=== PATIENT | male | born 1990 ===

== ENCOUNTER 2016-09-05 17:47 | Inpatient (IN) | payer OTHER ==
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
[2016-09-06 04:50] LABS: MEAN CELL VOLUME 97.9 fl (80.0-94.0); MEAN CORPUSCULAR HEMOGLOBIN 32.8 pg (27.0-31.0); MEAN CORPUSCULAR HGB CONC 33.5 g/dL (33.0-37.0); RED CELL DISTRIBUTION WIDTH 13.2 % (11.5-14.5); WHITE BLOOD COUNT 7.5 K/uL (4.8-10.8)
[2016-09-06 05:42] LABS: ALB/GLOB RATIO 1.3 (1.0-2.1); ALKALINE PHOSPHATASE 48 U/L (38-126); ALT/SGPT 39 U/L (21-72); AST/SGOT 35 U/L (17-59); BILIRUBIN,TOTAL 0.6 mg/dl (0.2-1.3); BLOOD UREA NITROGEN 24 mg/dl (9-20); CALCIUM 9.1 mg/dL (8.4-10.2); CARBON DIOXIDE 29 mmol/L (22-30); CHLORIDE 102 mmol/L (98-107); GFR AFRICAN-AMERICAN > 60; GLUCOSE,RANDOM 82 mg/dL (75-110); POTASSIUM 3.8 MMOL/L (3.6-5.0); SODIUM 144 mmol/l (132-148); TOTAL PROTEIN 7.2 G/DL (6.3-8.2)
--- NOTE | 2016-09-06 05:58 | ED PDOC ---
- Laboratory Results Result Diagrams: 09/06/16 04:30 09/06/16 04:30 - ECG O2 Sat by Pulse Oximetry: 95 (RA) Pulse Ox Interpretation: Normal Medical Decision Making Medical Decision Making: Labs normal. Admission to psychiatric unit. Disposition - Clinical Impression Clinical Impression: Depression - POA Present On Arrival: None - Disposition Disposition: Admitted as In-Patient Disposition Time: 05:58 Condition: STABLE
[2016-09-06 07:42] VITALS: O2SAT 98
[2016-09-06 09:33] LABS: RBC URINE 2 /hpf (0-3); URINE BILIRUBIN NEGATIVE (NEGATIVE); URINE BLOOD NEGATIVE (NEGATIVE); URINE COLOR YELLOW (YELLOW); URINE GLUCOSE (UA) NEG (Normal); URINE KETONE NEGATIVE (NEGATIVE); URINE LEUKOCYTE ESTERASE NEG Leu/uL (Negative); URINE PROTEIN >=500 mg/dL (NEGATIVE); URINE UROBILINOGEN 0.2-1.0 mg/dL (0.2-1.0); WBC URINE 1 /hpf (0-5)
[2016-09-06] MEDS ORDERED: Magnesium Hydroxide Susp 30 ml UD PO PRN (11:31)
[2016-09-06] MEDS ORDERED: DiphenhydrAMINE 50 mg/ml Inj IM PRN (11:31)
[2016-09-06 13:09] VITALS: BMI 20.3
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
[2016-09-06 17:02] VITALS: RESP 18
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
[2016-09-07] MEDS: Multiple Vitamins Oral Solution PO SCH (09:17)
--- NOTE | 2016-09-07 10:05 | RAD ---
PROCEDURE: Right Ankle Radiographs. HISTORY: ankle pain COMPARISON: None FINDINGS: BONES: Bone alignment and mineralization are normal. There is no acute fracture or bone destruction. JOINTS: Normal. No osteoarthritis. Ankle mortise maintained. Talar dome intact SOFT TISSUES: Normal. OTHER FINDINGS: None. IMPRESSION: Normal examination.
[2016-09-07 13:40] LABS: T4 5.23 ug/dl (5.5-11.0)
[2016-09-07 13:53] LABS: THYROID STIMULATING HORMONE 0.25 mIU/ML (0.46-4.68)
--- NOTE | 2016-09-07 13:53 | PCM.PYCHPN ---
Psychiatric Progress Note - Psychiatric Progress Note Patient seen today, length of contact: in treatment team Patient Chief Complaint: i tried to cut myself Problems Identified/Issues Discussed: pt c.o stopping meds and starting to drink alcohol, he states he is still depressed. he feels safe in the hospital and is not thinking of ways to harm self. he is denying withdrawal symptoms. sleep is fair. no psychosis. Medication Change: Yes (start celexa) Medical Record Reviewed: Yes Mental Status Examination - Cognitive Function Orientation: Person, Place, Situation, Time Memory: Intact Attention: WNL Concentration: WNL Association: [facility] Fund of Knowledge: [facility] Decription of patient's judgement and insights: fair - Mood Mood: Depressed - Affect Affect: Constricted - Speech Speech: Appropriate - Formal Thought Process Formal Thought Process: No Impairment - Suicidal Ideation Suicidal Ideation: No Plan: denies current si - Homicidal Ideation Homicidal Ideation: No Goal/Treatment Plan - Goal/Treatment Plan Need for Continued Stay: Remain at risks for inpatient hospitalization, Severe functional impairment Progress Toward Problem(s) and Goals/Treatment Plan: major depression alcohol dependence will continue prn meds for withdrawal start celexa to target depression encourage participation in groups. Estimated Date of D/C: 09/11/16 - Smoking Cessation Smoking Cessation Initiated: No Reason for not providing: declines
[2016-09-08] MEDS: Multiple Vitamins Oral Solution PO SCH (08:41)
--- NOTE | 2016-09-08 12:04 | PCM.PYCHPN ---
Psychiatric Progress Note - Psychiatric Progress Note Patient seen today, length of contact: discussed with team Patient Chief Complaint: i am ok Problems Identified/Issues Discussed: pt without c/o alcohol withdrawal. remains guarded. denies suicidal thoughts currently. denies any psychotic symptoms. Medication Change: No Medical Record Reviewed: Yes Mental Status Examination - Cognitive Function Orientation: Person, Place, Situation, Time Memory: Intact Attention: WNL Concentration: WNL Association: WNL Fund of Knowledge: [facility] Decription of patient's judgement and insights: fair - Mood Mood: Depressed - Affect Affect: Constricted - Speech Speech: Appropriate - Formal Thought Process Formal Thought Process: No Impairment - Suicidal Ideation Suicidal Ideation: No - Homicidal Ideation Homicidal Ideation: No Goal/Treatment Plan - Goal/Treatment Plan Need for Continued Stay: Remain at risks for inpatient hospitalization, Severe functional impairment Progress Toward Problem(s) and Goals/Treatment Plan: major depression alcohol dependence will continue prn meds for withdrawal start celexa to target depression- will increase later this week encourage participation in groups. Estimated Date of D/C: 09/11/16
[2016-09-09 09:13] VITALS: BP 136/66; PULSE 83; TEMP 100.4
[2016-09-09] MEDS: Multiple Vitamins Oral Solution PO SCH (09:28)
--- NOTE | 2016-09-09 14:37 | PCM.PYCHDC ---
Mental Status Examination - Mental Status Examination Orientation: Person, Place, Situation, Time Memory: Intact Mood: Neutral Affect: Broad Speech: Appropriate Attention: WNL Concentration: WNL Association: WNL Fund of Knowledge: WNL Formal Thought Process: No Impairment Description of patient's judgement and insight: fair Psychotic Thoughts and Behaviors: denies a/v hallucinations Suicidal Ideation: No Current Homicidal Ideation?: No Plan: denies suicidal or homicidal thoughts Discharge Summary - Discharge Note Reason for Hospitalization: depression, alcohol use Psychiatric History (includes Medical, Family, Personal Hx): history of inpt treatment Consultations:: List each consultation separately and include: 1. Reason for request. 2. Findings. 3. Follow-up Consultations: seen by the hospitalist Summary of Hospital Course include:: 1. Description of specific treatment plan utilized for patients during their course of treatmen. 2. Summarize the time- course for resolution of acute symptoms and/or regressed behaviors. 3. Describe issues identified and worked on during hospitalization. 4. Describe medication utilized. 5. Describe medical problems identified and treated. 6. Reassessment of suicide risk Summary of Hospital Course: [facility] and oriented to the unit. pt placed on routine safety protocols. pt started on celexa. pt tolerated his medications. he did not have any evidence of alcohol withdrawal. his mood improved and he was no longer describing any suicidal thoughts. he was goal directed and discharged focused and was denying any suicidal or homicidal thoughts. he was not having any psychotic symptoms. pt was participating in treatment and agreeable to f/u with outpt treatment after discharge. - Final Diagnosis (DSM 5) Condition upon Discharge: STABLE DSM 5: alcohol dependence major depression recurrent moderate Disposition: HOME/ ROUTINE Follow-up Treatment Plan: follow up with aftercare as directed take medication as prescribed do not use alcohol tobacco or other illicit substances call 911 if any suicidal or homicidal thoughts attend aa meetings daily. Prescriptions/Medication Reconciliation: Mirtazapine [Remeron] 15 mg PO HS #30 tab Citalopram [celeXA] 10 mg PO DAILY #30 tab - Smoking Cessation Smoking Cessation Medication prescribed: No Reason for not providing: declines - Antipsychotic Medications Pt discharged on 2 or more routine antipsychotic medications: No
== END 2016-09-09 14:30 | disposition home or self-care (01) | DRG 430 ==
LOC: H.ER 17:47 → H.EROBSV 19:00 → UNDOADMOB 19:00 → OBSVTOIN 09-06 04:48 → INTOOBSV 09-06 04:48 → H.EROBSV 09-06 04:48 → H.PSYCH 09-06 09:37
PROVIDERS: ADMIT Psychiatry & Neurology Psychiatry; ATTEND Psychiatry & Neurology Psychiatry
PROC: GZHZZZZ Group Psychotherapy (ICD-10-PCS; principal; 2016-09-06)
DX: F33.1 Major depressive disorder, recurrent, moderate (principal); R45.851 Suicidal ideations; F10.229 Alcohol dependence with intoxication, unspecified; Y90.8 Blood alcohol level of 240 mg/100 ml or more; M25.571 Pain in right ankle and joints of right foot; F17.210 Nicotine dependence, cigarettes, uncomplicated; Z88.0 Allergy status to penicillin

== ENCOUNTER 2016-09-22 20:08 | Observation (INO) | payer SELFPAY ==
[2016-09-22 20:08] VITALS: BMI 20.3
[2016-09-22 20:16] VITALS: RESP 16
--- NOTE | 2016-09-22 21:16 | ED PDOC ---
HPI: Psych/Substance Abuse Chief Complaint (Nursing): Psychiatric Evaluation Chief Complaint (Provider): psychiatric evaluation History Per: Patient History/Exam Limitations: no limitations Onset/Duration Of Symptoms: Unknown Current Symptoms Are (Timing): Still Present Additional Complaint(s): Esa Jackson is a 26 year old male, with a previous medical history of depression , who presents to the ED with complaints of suicidal ideation. Pt reports a plan of jumping in front of a moving car. Pt denies any homicidal ideation or hallucinations. Pt admits to alcohol consumption prior to arrival. Pt denies any additional complaints at this time. PMD: none provided Past Medical History Reviewed: Historical Data, Nursing Documentation, Vital Signs Vital Signs: Last Vital Signs Temp 98.2 F 09/22/16 20:12 Pulse 110 H 09/22/16 20:12 Resp 16 09/22/16 20:12 BP 141/85 09/22/16 20:12 Pulse Ox 100 09/22/16 20:12 - Medical History PMH: Depression (3rd admission, 1st here), Seizures (ETOH related) Denies: Diabetes, Hepatitis, HIV, HTN, Chronic Kidney Disease, Sexually Transmitted Disease - Family History Family History: States: Unknown Family Hx - Immunization History Hx Tetanus Toxoid Vaccination: Yes (this year) - Home Medications Home Medications: Ambulatory Orders Medication Instructions Recorded Citalopram [celeXA] 10 mg PO DAILY #30 tab 09/09/16 Mirtazapine [Remeron] 15 mg PO HS #30 tab 09/09/16 - Allergies Allergies/Adverse Reactions: Allergies Allergy/AdvReac Type Severity Reaction Status Date / Time amoxicillin Allergy ITCHING Verified 09/22/16 20:12 Review of Systems ROS Statement: Except As Marked, All Systems Reviewed And Found Negative Psych: Positive for: Suicidal ideation. Negative for: Other (homicidal ideation or hallucinations ) Physical Exam - Reviewed Nursing Documentation Reviewed: Yes Vital Signs Reviewed: Yes - Physical Exam Appears: Positive for: Well, Non-toxic, No Acute Distress Head Exam: Positive for: ATRAUMATIC, NORMAL INSPECTION, NORMOCEPHALIC Skin: Positive for: Normal Color, Warm, DRY Eye Exam: Positive for: Normal appearance, EOMI, PERRL ENT: Positive for: Normal ENT Inspection Neck: Positive for: Normal, Painless ROM Cardiovascular/Chest: Positive for: Regular Rate, Rhythm Respiratory: Positive for: CNT, Normal Breath Sounds Gastrointestinal/Abdominal: Positive for: Normal Exam, Bowel Sounds, Soft Back: Positive for: Normal Inspection Extremity: Positive for: Normal ROM, Other (multiple healing lacerations to the arms and legs ). Negative for: Tenderness, Deformity, Swelling Neurologic/Psych: Positive for: Alert, Oriented, Gait (steady), Other (ETOH on breath ) - Laboratory Results Result Diagrams: 09/22/16 21:14 09/22/16 21:14 - ECG O2 Sat by Pulse Oximetry: 100 (RA) Pulse Ox Interpretation: Normal - Progress ED Course And Treament: Crisis to see patient when alcohol leve <100 Medical Decision Making Medical Decision Making: Initial Impression: crisis evaluation Initial Plan: * alcohol serum * urine drug screen * crisis evaluation * 1:1 observation * ED observation * reevaluation Scribe Attestation: Documented by Beata Ch, acting as a scribe for Denise Peoples PA-C. Provider Scribe Attestation: All medical record entries made by the Scribe were at my direction and personally dictated by me. I have reviewed the chart and agree that the record accurately reflects my personal performance of the history, physical exam, medical decision making, and the department course for this patient. I have also personally directed, reviewed, and agree with the discharge instructions and disposition. ED OBSERVATION Date of observation admission: 09/22/16 - Observation admission statement Patient is being placed in observation because:: alcohol intoxication - Goals of Observation Goals of observation are:: clinical sobriety Disposition - Clinical Impression Clinical Impression: Alcohol abuse, Suicidal ideation - Patient ED Disposition Is Patient to be Admitted: Transfer of Care - Disposition Disposition: Transfer of Care Disposition Time: 00:00 Condition: FAIR Patient Signed Over To: Venus Mock Handoff Comments: pending crisis eval.
[2016-09-22 21:35] LABS: BASO % 0.3 % (0.0-2.0); EOS # 0.1 K/uL (0.0-0.7); EOS % 1.6 % (0.0-4.0); HEMATOCRIT 43.6 % (35.0-51.0); LYMPH # 2.1 K/uL (1.0-4.3); MEAN CORPUSCULAR HEMOGLOBIN 32.5 pg (27.0-31.0); MEAN CORPUSCULAR HGB CONC 33.5 g/dL (33.0-37.0); MEAN PLATELET VOLUME 8.3 fl (7.2-11.7); MONO # 0.9 K/uL (0.0-0.8); MONO % 10.7 % (0.0-10.0); NEUT # 5.2 K/uL (1.8-7.0); NEUT % 62.4 % (50.0-75.0); RED CELL DISTRIBUTION WIDTH 13.7 % (11.5-14.5); WHITE BLOOD COUNT 8.4 K/uL (4.8-10.8)
[2016-09-22 21:46] LABS: ALB/GLOB RATIO 1.2 (1.0-2.1); ALCOHOL SERUM 251 mg/dl (0-10); ALKALINE PHOSPHATASE 73 U/L (38-126); ALT/SGPT 21 U/L (21-72); AST/SGOT 41 U/L (17-59); BILIRUBIN,TOTAL 0.4 mg/dl (0.2-1.3); BLOOD UREA NITROGEN 22 mg/dl (9-20); CALCIUM 9.2 mg/dL (8.4-10.2); CARBON DIOXIDE 27 mmol/L (22-30); CHLORIDE 102 mmol/L (98-107); GFR AFRICAN-AMERICAN > 60; GLUCOSE,RANDOM 89 mg/dL (75-110); POTASSIUM 3.3 MMOL/L (3.6-5.0); SODIUM 147 mmol/l (132-148); TOTAL PROTEIN 7.7 G/DL (6.3-8.2)
[2016-09-22 22:13] VITALS: PULSE 89
[2016-09-23 02:42] VITALS: BP 105/73; TEMP 97.8; O2SAT 97
--- NOTE | 2016-09-23 05:18 | ED PDOC ---
- Laboratory Results Result Diagrams: 09/22/16 21:14 09/22/16 21:14 - ECG O2 Sat by Pulse Oximetry: 97 - Progress ED Course And Treament: Case endorsed to report writer from [facility] pending clinical sobriety, crisis eval 2:00 Patient sleeping, no distress. 3:00 Patient evaluated by shut off worker; does not meet criteria for admission at this time as per Dr. Galindo. To be discharged in am. 5:00 Patient awake, alert, oriented x 3; ambulating steady gait. Stable for discharge. Disposition - Clinical Impression Clinical Impression: Alcohol use disorder, mild, abuse - POA Present On Arrival: None - Disposition Disposition: Routine/Home Disposition Time: 05:19 Condition: STABLE
--- NOTE | 2016-09-23 21:28 | CARD ---
APPROVED REPORT EKG Measurement Heart [id number] <Conclusion> Normal sinus rhythm Normal ECG
== END 2016-09-23 05:20 | disposition home or self-care (01) ==
LOC: H.ER 20:08 → H.EROBSV 20:49
PROVIDERS: ADMIT Emergency Medicine; ATTEND Emergency Medicine
DX: F10.120 Alcohol abuse with intoxication, uncomplicated (principal); Y90.8 Blood alcohol level of 240 mg/100 ml or more; F32.9 Major depressive disorder, single episode, unspecified; G40.509 Epileptic seizures related to external causes, not intractable, without status epilepticus; R45.851 Suicidal ideations; Z88.0 Allergy status to penicillin
CPT/HCPCS: 36415; 80053; 85025; 93005; 99283; G0378; G0480

== ENCOUNTER 2016-10-11 18:54 | Emergency (ER) | payer MEDICAID, OTHER ==
[2016-10-11 18:54] VITALS: BMI 20.3
[2016-10-11 18:59] VITALS: BP 133/68; PULSE 84; RESP 20; TEMP 97.2; O2SAT 98
--- NOTE | 2016-10-11 19:32 | ED PDOC ---
HPI: Psych/Substance Abuse Time Seen by Provider: 10/11/16 18:55 Chief Complaint (Nursing): Alcohol Ingestion Chief Complaint (Provider): Alcohol Ingestion History Per: Patient History/Exam Limitations: intoxication Additional Complaint(s): 18:55 Esa Jackson is a 26 year old male with a history of alcohol abuse and depression that presents to the ED due to a bystander that called 911 after witnessing him fall and hit the back of his head. Patient states that he is reporting some pain to the back of his head, and admits to ingesting alcohol earlier today. Past Medical History Reviewed: Historical Data, Nursing Documentation, Vital Signs Vital Signs: Last Vital Signs Temp 97.2 F L 10/11/16 18:56 Pulse 84 10/11/16 18:56 Resp 20 10/11/16 18:56 BP 133/68 10/11/16 18:56 Pulse Ox 98 10/11/16 18:56 - Medical History PMH: Depression (3rd admission, 1st here), Seizures (ETOH related) Denies: Diabetes, Hepatitis, HIV, HTN, Chronic Kidney Disease, Sexually Transmitted Disease Other PMH: alcoholism - Family History Family History: States: Unknown Family Hx - Immunization History Hx Tetanus Toxoid Vaccination: Yes (this year) - Home Medications Home Medications: Ambulatory Orders Medication Instructions Recorded Citalopram [celeXA] 10 mg PO DAILY #30 tab 09/09/16 Mirtazapine [Remeron] 15 mg PO HS #30 tab 09/09/16 - Allergies Allergies/Adverse Reactions: Allergies Allergy/AdvReac Type Severity Reaction Status Date / Time amoxicillin Allergy ITCHING Verified 09/22/16 20:12 Review of Systems Neurological: Positive for: Headache Physical Exam - Reviewed Nursing Documentation Reviewed: Yes Vital Signs Reviewed: Yes - Physical Exam Appears: Positive for: Non-toxic, No Acute Distress Head Exam: Positive for: ATRAUMATIC (no abrasion, no hematoma), NORMOCEPHALIC Skin: Positive for: Normal Color, Warm, Dry Eye Exam: Positive for: Normal appearance, EOMI, PERRL ENT: Positive for: Normal ENT Inspection Cardiovascular/Chest: Positive for: Regular Rate, Rhythm. Negative for: Murmur Respiratory: Positive for: Normal Breath Sounds. Negative for: Wheezing Neurologic/Psych: Positive for: Alert, Oriented - Laboratory Results Result Diagrams: 10/11/16 19:40 04/30/17 19:40 - ECG O2 Sat by Pulse Oximetry: 98 (RA) Pulse Ox Interpretation: Normal Medical Decision Making Medical Decision Makin:03 Initial Impression: Head Injury Initial Plan: * CT Head w/o contrast * CMP * CBC * Alcohol Serum * Reevaluation * 2245 - Clear speech and steady gait. Head CT and labs normal, except elevated alcohol. Scribe Attestation: Documented by Mimi Pérez, acting as a scribe for Vikki Mccarty PA-C. Provider Scribe Attestation: All medical record entries made by the Scribe were at my direction and personally dictated by me. I have reviewed the chart and agree that the record accurately reflects my personal performance of the history, physical exam, medical decision making, and the department course for this patient. I have also personally directed, reviewed, and agree with the discharge instructions and disposition. Disposition - Clinical Impression Clinical Impression: Alcohol abuse, Fall - Patient ED Disposition Is Patient to be Admitted: No Counseled Patient/Family Regarding: Diagnosis, Need For Followup - Disposition Referrals: [facility] [Outside] Disposition: Routine/Home Disposition Time: 22:45 Condition: FAIR Instructions: Abuse of Alcohol (ED)
[2016-10-11 19:44] LABS: MEAN CELL VOLUME 95.1 fl (80.0-94.0); MEAN CORPUSCULAR HEMOGLOBIN 32.4 pg (27.0-31.0); MEAN CORPUSCULAR HGB CONC 34.1 g/dL (33.0-37.0); RED CELL DISTRIBUTION WIDTH 13.9 % (11.5-14.5); WHITE BLOOD COUNT 5.5 K/uL (4.8-10.8)
[2016-10-11 19:53] LABS: ALB/GLOB RATIO 1.1 (1.0-2.1); ALCOHOL SERUM 242 mg/dl (0-10); ALKALINE PHOSPHATASE 57 U/L (38-126); ALT/SGPT 38 U/L (21-72); AST/SGOT 45 U/L (17-59); BILIRUBIN,TOTAL 0.3 mg/dl (0.2-1.3); BLOOD UREA NITROGEN 15 mg/dl (9-20); CALCIUM 9.4 mg/dL (8.4-10.2); CARBON DIOXIDE 26 mmol/L (22-30); CHLORIDE 104 mmol/L (98-107); GFR AFRICAN-AMERICAN > 60; GLUCOSE,RANDOM 99 mg/dL (75-110); SODIUM 142 mmol/l (132-148); TOTAL PROTEIN 7.7 G/DL (6.3-8.2)
--- NOTE | 2016-10-11 21:50 | CT ---
EXAM: CT Head Without Intravenous Contrast CLINICAL HISTORY: 26 years old, male; Injury or trauma; Fall; Initial encounter; Laceration; Consciousness not specified; Without residual foreign body; Head, generalized; Injury date: Unknown; Injury details: ETOH. Falling. Best exam obtained due to pt's condition; Additional info: Head injury, fall ETOH TECHNIQUE: Axial computed tomography images of the head/brain without intravenous contrast. This CT exam was performed using one or more of the following dose reduction techniques: automated exposure control, adjustment of the mA and/or kV according to patient size, and/or use of iterative reconstruction technique. Coronal and sagittal reformatted images were created and reviewed. COMPARISON: No relevant prior studies available. FINDINGS: Limitations: Motion artifact - mild. Brain: Minimal atrophy. No definite intracranial hemorrhage. No mass. No definite edema. Ventricles: No hydrocephalus. Bones/joints: No acute fracture. Soft tissues: Unremarkable. Sinuses: Moderate focal mucosal thickening/air-fluid level of RIGHT maxillary sinus. Minimal focal mucosal thickening of LEFT maxillary sinus. Mastoid air cells: No mastoid effusion. Orbits: Unremarkable as visualized. IMPRESSION: 1. No definite intracranial hemorrhage. 2. Sinus disease. 3. Incidental/non-acute findings are described above.
== END 2016-10-11 22:40 | disposition home or self-care (01) ==
LOC: H.ER 18:54
DX: F10.10 Alcohol abuse, uncomplicated (principal); S09.90XA Unspecified injury of head, initial encounter; W19.XXXA Unspecified fall, initial encounter; Y92.410 Unspecified street and highway as the place of occurrence of the external cause; F32.9 Major depressive disorder, single episode, unspecified

== ENCOUNTER 2016-10-20 14:06 | Emergency (ER) | payer SELFPAY ==
[2016-10-20 14:06] VITALS: BMI 20.3
[2016-10-20 14:14] VITALS: O2SAT 98
[2016-10-20 15:53] LABS: HEMATOCRIT 43.4 % (35.0-51.0); MEAN CELL VOLUME 95.2 fl (80.0-94.0); MEAN CORPUSCULAR HEMOGLOBIN 31.4 pg (27.0-31.0); RED CELL DISTRIBUTION WIDTH 13.9 % (11.5-14.5); WHITE BLOOD COUNT 6.4 K/uL (4.8-10.8)
[2016-10-20 16:06] LABS: ALB/GLOB RATIO 1.4 (1.0-2.1); ALCOHOL SERUM 263 mg/dl (0-10); ALKALINE PHOSPHATASE 55 U/L (38-126); ALT/SGPT 36 U/L (21-72); AST/SGOT 40 U/L (17-59); BILIRUBIN,TOTAL 0.3 mg/dl (0.2-1.3); BLOOD UREA NITROGEN 21 mg/dl (9-20); CALCIUM 9.5 mg/dL (8.4-10.2); CARBON DIOXIDE 24 mmol/L (22-30); CHLORIDE 103 mmol/L (98-107); GFR AFRICAN-AMERICAN > 60; GLUCOSE,RANDOM 93 mg/dL (75-110); SODIUM 142 mmol/l (132-148); TOTAL PROTEIN 7.3 G/DL (6.3-8.2)
[2016-10-20 16:42] LABS: RBC URINE 1 /hpf (0-3); URINE BILIRUBIN NEGATIVE (NEGATIVE); URINE BLOOD NEGATIVE (NEGATIVE); URINE COLOR STRAW (YELLOW); URINE GLUCOSE (UA) NEG (Normal); URINE KETONE NEGATIVE (NEGATIVE); URINE LEUKOCYTE ESTERASE NEG Leu/uL (Negative); URINE PROTEIN 100 mg/dL (NEGATIVE); URINE UROBILINOGEN 0.2-1.0 mg/dL (0.2-1.0); WBC URINE < 1 /hpf (0-5)
--- NOTE | 2016-10-20 21:39 | ED PDOC ---
HPI: Psych/Substance Abuse Time Seen by Provider: 10/20/16 14:23 Chief Complaint (Nursing): Alcohol Ingestion Chief Complaint (Provider): ETOH - Brought by EMS History Per: Patient, EMS History/Exam Limitations: no limitations Additional Complaint(s): Pt states he [place]. Denies complaints. Admits to drinking. Past Medical History Reviewed: Historical Data, Nursing Documentation, Vital Signs Vital Signs: Last Vital Signs Temp 98.9 F 10/20/16 14:11 Pulse 96 H 10/20/16 14:11 Resp 20 10/20/16 14:11 BP 123/58 L 10/20/16 14:11 Pulse Ox 98 10/20/16 14:11 - Medical History PMH: Depression (3rd admission, 1st here), Seizures (ETOH related) Denies: Diabetes, Hepatitis, HIV, HTN, Chronic Kidney Disease, Sexually Transmitted Disease - Surgical History Surgical History: No Surg Hx - Family History Family History: States: Unknown Family Hx - Living Arrangements Living Arrangements: With Family - Social History Alcohol: > 2 Drinks/Day Drugs: Denies - Immunization History Hx Tetanus Toxoid Vaccination: Yes (this year) - Home Medications Home Medications: Ambulatory Orders Medication Instructions Recorded Citalopram [celeXA] 10 mg PO DAILY #30 tab 09/09/16 Mirtazapine [Remeron] 15 mg PO HS #30 tab 09/09/16 - Allergies Allergies/Adverse Reactions: Allergies Allergy/AdvReac Type Severity Reaction Status Date / Time amoxicillin Allergy ITCHING Verified 10/20/16 14:11 Review of Systems ROS Statement: Except As Marked, All Systems Reviewed And Found Negative Physical Exam - Reviewed Nursing Documentation Reviewed: Yes Vital Signs Reviewed: Yes - Physical Exam Appears: Positive for: Well, Non-toxic, No Acute Distress Head Exam: Positive for: ATRAUMATIC, NORMAL INSPECTION, NORMOCEPHALIC Skin: Positive for: Normal Color, Warm, DRY Eye Exam: Positive for: Normal appearance ENT: Positive for: Normal ENT Inspection Neck: Positive for: Normal, Painless ROM Cardiovascular/Chest: Positive for: Regular Rate, Rhythm Respiratory: Positive for: Normal Breath Sounds. Negative for: Accessory Muscle Use, Respiratory Distress Gastrointestinal/Abdominal: Positive for: Normal Exam, Bowel Sounds, Soft Back: Positive for: Normal Inspection Extremity: Positive for: Normal ROM Neurologic/Psych: Positive for: Alert, Oriented - Laboratory Results Result Diagrams: 10/20/16 15:35 10/20/16 15:35 - ECG O2 Sat by Pulse Oximetry: 98 Medical Decision Making Medical Decision Makin - Clear speech and steady gait. Pt ate tray of food. Disposition - Clinical Impression Clinical Impression: Alcohol abuse with intoxication - Patient ED Disposition Is Patient to be Admitted: No - Disposition Referrals: [facility] [Outside] Disposition: Routine/Home Disposition Time: 20:55 Condition: STABLE Instructions: Alcohol Intoxication (ED)
[2016-10-20 22:36] VITALS: BP 126/70; PULSE 78; RESP 18; TEMP 98.2
== END 2016-10-20 22:36 | disposition home or self-care (01) ==
LOC: H.ER 14:06
DX: F10.129 Alcohol abuse with intoxication, unspecified (principal); Y90.8 Blood alcohol level of 240 mg/100 ml or more
CPT/HCPCS: 80053; 81003; 85027; 99282; G0480

== ENCOUNTER 2016-10-30 11:40 | Emergency (ER) | payer OTHER ==
[2016-10-30 11:41] VITALS: BMI 20.3
[2016-10-30] MEDS ORDERED: Multivitamin (MVI) 10 ML, Thiamine 100 MG, Folic Acid 1 MG in Sodium Chloride 0.9% 1,00... IV ONE (12:12)
--- NOTE | 2016-10-30 12:41 | ED PDOC ---
HPI: Psych/Substance Abuse Time Seen by Provider: 10/30/16 12:10 Chief Complaint (Nursing): Alcohol Ingestion Chief Complaint (Provider): Syncope/Weakness History Per: Patient History/Exam Limitations: no limitations Onset/Duration Of Symptoms: Hrs (prior to arrival) Current Symptoms Are (Timing): Better Additional Complaint(s): 26 y/o male presents to the emergency department via EMS with a complaint of syncope(not witnessed) prior to arrival. Associated with lower back pain and right knee pain status post fall. States he was experiencing generalized weakness before syncope. Reports he did not eat anything today and was drinking last night, 10/29/2016. Patient is currently homeless. PMD: none Past Medical History Reviewed: Historical Data, Nursing Documentation, Vital Signs Vital Signs: Last Vital Signs Temp 99.5 F 10/30/16 11:43 Pulse 137 H 10/30/16 11:43 Resp 20 10/30/16 11:43 BP 124/84 10/30/16 11:43 Pulse Ox 96 10/30/16 11:43 - Medical History PMH: Depression (3rd admission, 1st here), Seizures (ETOH related) Denies: Diabetes, Hepatitis, HIV, HTN, Chronic Kidney Disease, Sexually Transmitted Disease - Surgical History Surgical History: No Surg Hx - Family History Family History: States: Unknown Family Hx - Social History Current smoker - smoking cessation education provided: No Alcohol: > 2 Drinks/Day Drugs: Denies - Immunization History Hx Tetanus Toxoid Vaccination: Yes (this year) - Home Medications Home Medications: Ambulatory Orders Medication Instructions Recorded Citalopram [celeXA] 10 mg PO DAILY #30 tab 09/09/16 Mirtazapine [Remeron] 15 mg PO HS #30 tab 09/09/16 - Allergies Allergies/Adverse Reactions: Allergies Allergy/AdvReac Type Severity Reaction Status Date / Time amoxicillin Allergy ITCHING Verified 10/30/16 11:44 Review of Systems ROS Statement: Except As Marked, All Systems Reviewed And Found Negative Constitutional: Positive for: Weakness (Generalized) Musculoskeletal: Positive for: Back Pain, Other (Right knee pain) Physical Exam - Reviewed Nursing Documentation Reviewed: Yes Vital Signs Reviewed: Yes - Physical Exam Appears: Positive for: Non-toxic, No Acute Distress Head Exam: Positive for: ATRAUMATIC, NORMOCEPHALIC Skin: Positive for: Normal Color, Warm, Dry Neurologic/Psych: Positive for: Alert, Oriented, Other (Walks in a straight line ) - ECG O2 Sat by Pulse Oximetry: 96 (RA) Pulse Ox Interpretation: Normal Medical Decision Making Medical Decision Making: Time: 12:10 Initial impression: Syncope--possible from alcohol intoxication/weakness from drinking alcohol Initial plan: --Alcohol Serum Stat --COMP Metabolic Panel --Drug Scree, Urine Stat --Magnesium Stat --CBC w/ differential --Sodium Chloride 1,000 ml IV 250 mls/hr --IV Insertion --Accucheck --Seizure Precautions Stat --Urinalysis Stat --Accucheck: 132 --Initial plan was not completed because. --Pt is clinically sober; mentating appropriately. Walks in straight line. Pt with HR of 120 but wants to leave AMA but was advised to stay. I will not hold pt against his will and will allow him to leave AMA. Pt verbalizes understanding of risks involved (including ); will sign out AMA. Patient was told if he changes his mind he can always return to the ER. Scribe Attestation: Documented by Yanique Villanueva, acting as a scribe for Donald Hoover MD. Provider Scribe Attestation: All medical record entries made by the Scribe were at my direction and personally dictated by me. I have reviewed the chart and agree that the record accurately reflects my personal performance of the history, physical exam, medical decision making, and the department course for this patient. I have also personally directed, reviewed, and agree with the discharge instructions and disposition. Disposition - Clinical Impression Clinical Impression: Syncope and collapse, Weakness, Alcohol dependence - Patient ED Disposition Is Patient to be Admitted: No - Disposition Referrals: [facility] [Outside] [facility] [Outside] Disposition: Against Medical Advice Disposition Time: 12:33 Condition: IMPROVED Additional Instructions: Mr. Steele, thank you for letting us take care of you today. Return to the ER if your symptoms worsen, or if any problems. You did not want to have bloodwork or tests done today, but later if you change your mind, please go to our clinic ([facility]) for a re- evaluation. Call the phone number listed below for an appointment. Do not drink alcohol in excess. Instructions: Weakness (ED) Print Language: LIBERIAN
[2016-10-30 12:48] VITALS: BP 133/93; PULSE 120; RESP 18; TEMP 98.3
[2016-10-30 12:50] VITALS: O2SAT 96
== END 2016-10-30 12:55 | disposition left against medical advice (07) ==
LOC: H.ER 11:40
DX: R55 Syncope and collapse (principal); F10.10 Alcohol abuse, uncomplicated; R53.1 Weakness